=== PATIENT | female | born 1950 | race American Indian/Alaskan Native ===

== ENCOUNTER 2024-08-23 10:17 | Outpatient (AMB) | payer OTHER, SELFPAY ==
[2024-08-23 11:01] VITALS: BP 143/85; PULSE 87; RESP 18; TEMP 36.4; O2SAT 97; BMI 35.9
--- NOTE | 2024-08-23 11:01 | ORTHONT_ITS ---
Vital signs 08/23/24 11:01 Height 1.57 m Height Method Stated Weight 89.018 kg Weight Measurement Method Standing Scale BMI 35.9 BP 143/85 H Blood Pressure Source Automatic Cuff Blood Pressure Location Right Upper Arm Position Sitting Respiration 18 Pulse 87 Pulse Source Monitor Temp 97.6 F Temp Source Temporal Artery Scan Pulse Oximetry (%) 97 Oxygen Delivery Method Room Air Med/Allergies Allergies & Medications Allergies tetracycline Allergy (Unknown, Verified 08/23/24 11:01) RASH Medication Reconciliation coenzyme Q10 100 mg capsule (CoQ-10) 100 mg PO DAILY 06/01/20 [History Confirmed 08/23/24] losartan 50 mg tablet 50 mg PO DAILY 06/01/20 [History Confirmed 08/23/24] [id number] ac 400 mcg-calcium carb 500 mg-vit K1 20 mcg tablet (Women's 50 Plus Multivitamin) 1 tab PO DAILY 06/01/20 [History Confirmed 08/23/24] meloxicam 7.5 mg tablet 7.5 mg PO QDAY #45 tabs 08/23/24 [Rx] Subjective Visit Visit for: new patient and knee (LEFT MENISCUS TEAR) Immunization / Flu Flu Vaccine in the Last 12 Months: No Flu Vaccine Exclusion Criteria: Refused by Patient History of Present Illness Chief complaint: LEFT KNEE TEAR MENISCUS Date of injury / onset of symptoms: 03/2024 Patient is a pleasant 74-year-old female with left knee pain and left knee arthritis. This been ongoing for about 3 months. She is tried ibuprofen. She has not had any injections or physical therapy. She had a history of a arthroscopic meniscectomy a few years ago for her other side. She reports that it is still bothersome someone Personal History Occupation: early childhood special educator Pain Pain level (0-10): 5 Pain duration: CONSTANT Pain location: inside (medial) Pain quality: aching Pain timing: night and increases with activity Associated signs & symptoms: none Ambulatory data Ambulatory device: none Treatments Improvement with previous injections: No Improvement with PT: No Improvement with NSAIDS: no Review of Systems Review of Systems: All systems negative unless otherwise noted in HPI. Exam Exam Patient is in no acute distress and is cooperative with the examination today. Breathing is nonlabored. Patient has a normal mood and affect. Bilateral extremities were evaluated and demonstrates sensation intact to light touch. Palpable pedal pulses are present. No significant edema is present. Bilateral hips were examined. The patient has no pain with log roll of the hips. Internal rotation to 30 degrees and external rotation to 30 degrees is painless. Negative FADIR. Right knee was examined today. The right knee is in reasonable alignment. Range of motion from 0-120 degrees. Knee is stable to varus and valgus as well as AP translation with <5mm. Patient has a negative McMurrays. There is no pain with patellofemoral compression and no crepitus noted. The knee is nontender to palpation. Left knee was examined today. The left knee is in [varus] alignment. Range of motion from [0-115] degrees. Knee is stable to varus and valgus as well as AP translation with <5mm. Patient has a [negative] McMurrays. There is [no] pain with patellofemoral compression and [no] crepitus noted. The knee is [tender] to palpation [medially]. She has nonweightbearing x-rays that demonstrate mild arthritis and joint space narrowing Assessment and Plan Problem List (1) Arthritis of left knee: Status: Acute Plan: Patient is a 74-year-old female with left knee pain and left knee arthritis. We discussed nonoperative and operative options. We discussed that degenerative meniscal tears and arthritis is usually treated nonoperatively. We recommend injections and anti-inflammatories and physical therapy. We will start with an injection and a prescription for anti-inflammatories today. I would like to see weightbearing x-rays as well to better assess the severity of the arthritis Recommend knee cortisone injection as patient would like to proceed with conservative treatment at this time. The risks and benefits of the procedure were reviewed with the patient and patient gave verbal consent to continue with the procedure. Procedure: performed by Dr. Maldonado Using sterile technique the left knee was thoroughly prepped with alcohol, and approximately 1 cc of Kenalog 40 mg/mL and 4 cc of 1% lidocaine was injected without resistance into the medial tibial femoral joint space. The patient tolerated the procedure. Advanced Care Planning Discussion Advance care planning discussed with:: patient Office Procedures GNS Level of Care Nursing/Assessment Patient Status: Initial/New Patient Nursing Assessment/Reassesment: Medication Reconciliation, Update PMH in EMR and Vital Signs Coordination of Care: Complex Care and Chronic Disease 1-5, Education Complex Pt/Fam, Consent,records obtained, informed consent, 1 Ins Authorization, Lab and Imaging orders, Results/Orders obtained and Staff clarify orders New Patient Charge New Patient Point Assignment: 1124 New Patient Point Charge: [employer] Level 4 ([id number]) Surgical Proc/IM SQ injection Major Surgical Procedure: Yes (LEFT KNEE INJECTION) Medication Given Medication Given Medication Given: Yes Documented Dose Given: 4 Route: Infiitration Medication Given Medication Given Medication Given: Yes Documented Dose Given: 1 Route: Infiitration Office Meds Xylocaine 10 mg/mL (1 %) injection solution Performing Provider: Brad Maldonado MD Performing Location: [facility] Administered by: Brad Maldonado MD on 08/23/24 11:20 Dose Route Admin Location Dispensed Lot Number Expiration Date [place] [employer] 20 mL Infiltration 20 mL [id number] 05/31/27 88641-508-22 [facility] triamcinolone acetonide 40 mg/mL suspension for injection Performing Provider: Brad Maldonado MD Performing Location: [facility] Administered by: Brad Maldonado MD on 08/23/24 11:20 Dose Route Admin Location Dispensed Lot Number Expiration Date [place] [employer] 40 mg Infiltration 1 mL [id number] 04/30/26 [address]-0 [employer] Past Medical History Past Medical History Have you ever been diagnosed with any of the following: Cardiology Problems Congestive Heart Failure: No Hypertension: Yes Respiratory Problems Chronic Obstructive Pulmonary Disease (COPD): No Smoking: No Smoking Exposure: No Stomache/Intestinal Problems Gastroesophageal Reflux Disease: Yes Genital/Urinary Problems Renal Disease: No Reproductive Problems Previous Pregnancies: Yes () Musculoskeletal Problems Arthritis: Yes (LEFT KNEE) Head,Eye,Nose,Throat Problems Cataracts: Yes (BILATERAL) Endocrine Problems Diabetes Mellitus Type 1: No Diabetes Mellitus Type 2: No Hyperthyroidism: Yes Other Problems Hospitalization: Yes Chicken Pox: Yes
== END 2024-08-23 11:24 | disposition home or self-care (01) ==
PROVIDERS: PCP Nurse Practitioner Family; Referring Provider Nurse Practitioner Family; Supervising Provider Orthopaedic Surgery Adult Reconstructive Orthopaedic Surgery; Visit Provider Orthopaedic Surgery Adult Reconstructive Orthopaedic Surgery
DX: M17.12 Unilateral primary osteoarthritis, left knee (principal); I10 Essential (primary) hypertension
CPT/HCPCS: 20610; 99204; J3301; J3490; G0463

== ENCOUNTER → 2024-09-09 | Outpatient (CLI) | payer OTHER, SELFPAY ==
--- NOTE | 2024-09-09 13:30 | XR_ITS ---
Examination: Bilateral knees 2 views Right lateral knee left lateral knee 2 views Bilateral axial knees single view TECHNIQUE: Bilateral AP knees standing single view, bilateral PA knees standing 30 degrees flexion single view Standing right lateral knee left lateral knee 2 views Bilateral axial knees single view total 5 views Exam date and time: 04/09/2024 1428 hours INDICATIONS: Bilateral knee pain beginning 2 years ago. FINDINGS: Moderate to advanced narrowing medial joint space right knee Moderate narrowing medial joint space left knee Moderate osteoarthritis patellofemoral joints No fracture or dislocation involving either knee IMPRESSION: Moderate to advanced narrowing medial joint space right knee Moderate narrowing medial joint space left knee Moderate osteoarthritis patellofemoral joints
[2024-09-09 16:34] LABS: Basophils % (Auto) 0 % (0-2.5); Eosinophils # (Auto) 0.2 Thou/mm3 (0.0-0.5); Eosinophils % (Auto) 2 % (0-10); Hematocrit 41.6 % (36.0-46.0); Hemoglobin 13.4 g/dL (12.0-16.0); Immature Granulocytes % (Auto) 0 % (0-0); Immature Granulocytes Auto 0.03 Thou/mm3 (0.00-0.00); Lymphocytes # (Auto) 2.5 Thou/mm3 (1.0-4.8); Lymphocytes % (Auto) 25 % (10-50); Mean Corpuscular HGB Conc 32.2 g/dl (31.0-37.0); Mean Corpuscular Hemoglobin 29.2 pg (25.0-35.0); Mean Corpuscular Volume 91 fL (80-100); Monocytes # (Auto) 0.4 Thou/mm3 (0.0-0.8); Monocytes % (Auto) 4 % (0-12); Neutrophils # (Auto) 6.9 Thou/mm3 (1.8-7.7); Neutrophils % (Auto) 69 % (37-80); Nucleated Red Blood Cell % 0 /100 WBC (0); Platelet Count 306 Thou/mm3 (140-440); RDW Standard Deviation 45.1 fL (36.4-46.3); Red Blood Count 4.59 Miln/mm3 (4.00-5.20)
[2024-09-09 16:57] LABS: Alanine Aminotransferase 18 U/L (10-49); Albumin, Serum 4.9 gm/dL (3.4-4.8); Albumin/Globulin Ratio 2.2 (1.2-2.2); Alkaline Phosphatase 111 U/L (46-116); Anion Gap 8 (7-16); Aspartate Amino Transferase 16 U/L (0-34); BUN/Creatinine Ratio 17 Ratio (12-20); Bilirubin,Total 0.5 mg/dL (0.3-1.2); Blood Urea Nitrogen 15 mg/dL (9-23); Calcium 10.2 mg/dL (8.3-10.6); Calcium (Corrected) 10.2 mg/dL (8.5-10.1); Carbon Dioxide 28.1 mMol/L (20.0-31.0); Chloride 105 mMol/L (98-107); Creatinine (Component) 0.9 mg/dL (0.6-1.3); Free T3 3.5 pg/mL (2.3-4.2); Free T4 (Free Thyroxine) 1.35 ng/dL (0.89-1.76); Globulin 2.2 gm/dL (2.3-3.5); Glucose 89 mg/dL (74-106); Osmolality,Calculated 281 (275-295); Sodium 141 mMol/L (136-145); Thyroid Stimulating Hormone 0.01 uIU/mL (0.55-4.78); Total Protein 7.1 gm/dL (5.7-8.2); eGFR > 60 See Note
[2024-09-16 06:56] LABS: TSI, Thyroid Stimulating Ig* <89 % baseline (<140); Thyroid Peroxidase Antibodies* 2 IU/mL (<9)
== END | disposition home or self-care (01) ==
PROVIDERS: Internal Medicine Endocrinology, Diabetes & Metabolism; PCP Orthopaedic Surgery Adult Reconstructive Orthopaedic Surgery; Referring Provider Nurse Practitioner Family; Visit Provider Radiology Diagnostic Radiology
DX: M25.862 Other specified joint disorders, left knee (principal); M25.861 Other specified joint disorders, right knee; M17.0 Bilateral primary osteoarthritis of knee; R94.6 Abnormal results of thyroid function studies; E78.5 Hyperlipidemia, unspecified; I10 Essential (primary) hypertension
CPT/HCPCS: 36415; 73564; 80053; 84439; 84443; 84445; 84481; 85025; 86376

== ENCOUNTER → 2025-07-04 | Outpatient (CLI) | payer MEDICARE, OTHER, MEDICAID, SELFPAY ==
--- NOTE | 2025-07-04 14:00 | XR_ITS ---
Examination: Thyroid sonography complete TECHNIQUE: Grayscale sonographic images thyroid lobes Date and time: July 04, 2025, 1432 hours INDICATIONS: History Isthmus nodule 6 mm upper pole left thyroid nodule 14 mm midpole nodule 11 mm on thyroid sonogram March 27, 2020 FINDINGS: Right thyroid 4.5 cm Upper pole nodule 15 x 12 mm Lower pole nodule 7 x 8 mm, 8 x 9 mm Isthmus nodule 7 x 6 mm Left thyroid 4.4 cm Upper pole nodule 19 x 14 mm Midpole nodule 12 x 10 mm IMPRESSION: Multiple thyroid nodules as above Upper pole nodule left thyroid is irregular in contour and vascular, consider ultrasound-guided fine-needle aspiration of this nodule
== END | disposition home or self-care (01) ==
PROVIDERS: PCP Internal Medicine; Referring Provider Internal Medicine; Visit Provider Internal Medicine
DX: E04.2 Nontoxic multinodular goiter (principal)
CPT/HCPCS: 76536

== ENCOUNTER → 2025-07-24 | Outpatient (CLI) | payer MEDICARE, OTHER, MEDICAID, SELFPAY ==
--- NOTE | 2025-07-24 15:55 | XR_ITS ---
Exam: MRI knee without contrast, left Date and time of exam: July 24, 2025, 1632 hours, comparison May 27, 2024 INDICATIONS: Medial left-sided knee pain and swelling soreness stiffness beginning 3 years ago Technique: Multiple axial, coronal, and sagittal sections on the knee have been obtained. T2-Weighted sagittal, fat-suppressed images, TR 3,500, TE 62, T2 weighted coronal fat-saturated images, TR 3,500, TE 62 Proton density sagittal sections, TR 1800, TE 31. T-1 weighted coronal images, TR 524, TE 13.0 Findings: Medial meniscus anterior horn intact. Medial meniscus, body replaced by isointense signal and extruded from the joint space. Posterior horn medial meniscus truncation inner margin, horizontal linear tear. Lateral meniscus anterior horn is intact Lateral meniscus, body is intact Posterior horn lateral meniscus is intact Anterior cruciate ligament significantly attenuated Posterior cruciate ligament appears intact. Knee effusion is moderate. Quadriceps and patellar tendons appear intact. There is no evidence of tendinosis. Inflammatory change or fracture of Hoffa's fat pad is not seen. Medial patellar facet demonstrates moderate thinning. Lateral patellar facet cartilage demonstrates moderate thinning. Trochlear cartilage demonstrates moderate thinning. Marrow signal 14 mm focus osteochondral dissecans medial femoral condyle coronal image 12. Medial collateral ligament appears intact. No meniscocapsular separation is seen. Illiotibial band and fibular collateral ligament are intact. Biceps femoris tendons appear intact. Medial femoral condylar articular cartilage demonstrates severe thinning. Lateral femoral condylar articular cartilage demonstrates moderate thinning. Tibial plateau cartilage demonstrates severe medial thinning. 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
== END | disposition home or self-care (01) ==
LOC: SMRI 15:11
PROVIDERS: PCP Internal Medicine; Referring Provider Internal Medicine; Visit Provider Internal Medicine
DX: S83.242A Other tear of medial meniscus, current injury, left knee, initial encounter (principal); X58.XXXA Exposure to other specified factors, initial encounter; M93.262 Osteochondritis dissecans, left knee; M23.8X2 Other internal derangements of left knee
CPT/HCPCS: 73721